=== PATIENT | female | born 1935 | race Caucasian/White ===

== ENCOUNTER 2016-07-20 16:44 | Emergency (ER) | payer OTHER ==
[~2016-07-20] VITALS: Ht 157.5 cm; Wt 65.1 kg
[~2016-07-20 16:44] MED LIST: ASPIRIN81 M2 PO; CYANOCOBAL1000 MCG/2 IM; FAMOTIDINE20 MG PO; KEFLEX500 MG PO; LEVAQUIN750 MG PO; METRONIDAZOLE500 MG PO; NAPROSYN500 MG PO; NEXIUM40 MG PO; VASOTEC2.5 MG PO; VITAMIN B PO; VITAMIN B-6100 MG PO; VITAMIN B-650 M1 PO; VITAMIN D PO; VITAMIN D31000 UNIT PO; ZINC50 M1 PO; ZOCOR40 MG PO
[2016-07-20 17:00] LABS: HEMATOCRIT 36.3 % (36.0-46.0); MCH 27.4 PG (29.0-34.0); MCHC 32.5 G/DL (30.0-36.0); MCV 84.2 FL (83-99); PLATELET COUNT 195 K/uL (156-360); RBC DIS.WIDTH-CV 14.2 % (11.8-14.6); RED BLOOD COUNT 4.31 M/uL (3.80-5.20)
[2016-07-20 17:11] LABS: CHLORIDE 107 mEq/L (99-109); POTASSIUM 4.5 mEq/L (3.7-5.4); SODIUM 140 mEq/L (136-147)
[2016-07-20 17:13] LABS: GLUCOSE 118 mg/dL (70-99)
[2016-07-20 17:14] LABS: ANION GAP 9 MEQ/L (2-14)
[2016-07-20 17:17] LABS: GFR ESTIMATE (CALCULATED) 46 mL/min/; UREA NITROGEN (BUN) 22 mg/dL (9-23)
[2016-07-20 21:25] LABS: ADD MIUA? YES; BILIRUBIN NEGATIVE; BLOOD NEGATIVE; COLOR STRAW ((YELLOW)); GLUCOSE (STRIP) NEGATIVE; KETONES NEGATIVE; LEUKOCYTES TRACE; NITRITE NEGATIVE; PROTEIN (STRIP) 30; SPECIFIC GRAVITY 1.011 (1.000-1.030); UROBILINOGEN 0.2 MG/DL (0.2-1.0)
[2016-07-20 21:32] LABS: BACTERIA NONE SEEN /HPF; EPITHELIAL CELLS RARE /HPF; MUCUS TRACE /LPF; RED BLOOD CELLS 0-5 /HPF (0-5); UCUL ADDED? NO; WHITE BLOOD CELLS 0-5 /HPF (0-5)
[2016-07-20] MEDS ORDERED: NORCO 5/3251 TABLET PO (21:41)
[2016-07-20 22:03] VITALS: BP 158/67
== END 2016-07-20 22:03 | disposition home or self-care (01) ==
LOC: EME 16:44
DX: N20.0 Calculus of kidney (principal); Z87.440 Personal history of urinary (tract) infections; E78.5 Hyperlipidemia, unspecified; K21.9 Gastro-esophageal reflux disease without esophagitis; Z79.82 Long term (current) use of aspirin
CPT/HCPCS: 74176; 80048; 81003; 85027; 99281; 99284

== ENCOUNTER 2017-06-04 10:49 | Emergency (ER) | payer OTHER, BC ==
[~2017-06-04] VITALS: Ht 157.5 cm; Wt 64.4 kg
[~2017-06-04 10:49] MED LIST changes: +NORCO 5/3251 TABLET PO
[2017-06-04 11:24] LABS: HEMATOCRIT 38.8 % (36.0-46.0); HEMOGLOBIN 12.3 G/DL (11.9-15.5); MCH 27.7 PG (29.0-34.0); MCHC 31.7 G/DL (30.0-36.0); MCV 87.4 FL (83-99); PLATELET COUNT 185 K/uL (156-360); RBC DIS.WIDTH-CV 14.2 % (11.8-14.6); RBC DIS.WIDTH-SD 45.4 % (39-53); RED BLOOD COUNT 4.44 M/uL (3.80-5.20); WHITE BLOOD COUNT 6.5 K/uL (4.1-10.2)
[2017-06-04 11:34] LABS: CHLORIDE 106 mEq/L (99-109); POTASSIUM 4.6 mEq/L (3.7-5.4); SODIUM 139 mEq/L (136-147)
[2017-06-04 11:36] LABS: GLUCOSE 106 mg/dL (70-99)
[2017-06-04 11:40] LABS: GFR ESTIMATE (CALCULATED) 56 mL/min/
[2017-06-04 11:41] LABS: UREA NITROGEN (BUN) 21 mg/dL (9-23)
[2017-06-04 11:45] LABS: TROP-I INTERPRETATION NEGATIVE; TROPONIN-I < 0.01 ng/mL (0.0-0.30)
[2017-06-04] MEDS ORDERED: ZOVIRAX800 M1 PO (13:59)
[2017-06-04 14:26] VITALS: BP 184/87
== END 2017-06-04 14:27 | disposition home or self-care (01) ==
LOC: EME 10:49
DX: B02.9 Zoster without complications (principal); K21.9 Gastro-esophageal reflux disease without esophagitis; I10 Essential (primary) hypertension; E78.5 Hyperlipidemia, unspecified; Z79.82 Long term (current) use of aspirin
CPT/HCPCS: 71046; 80048; 84484; 85027; 93005; 99281; 99284